=== PATIENT | male | born 1995 | race Asian ===

== ENCOUNTER 2017-07-10 05:37 | Emergency (ER) | payer OTHER ==
[~2017-07-10] VITALS: Ht 177.8 cm; Wt 65.0 kg
[2017-07-10 05:41] VITALS: TEMP 36.9; Ht 177.8 cm; Wt 65.0 kg
[2017-07-10 06:34] VITALS: BP 121/73; PULSE 80; O2SAT 97
--- NOTE | 2017-07-11 08:00 | EMERGENCY ROOM VISIT NOTE ---
History First contact with patient: 05:50 Chief Complaint: SORETHROAT Stated Complaint: SORE THROAT History of Present Illness The patient is a 21 year old male who presents to the Emergency Room with complaints of sore throat symptoms for the past 3 or 4 days. The patient states that he has been taking "greek" medicine without relief of symptoms for the past 2 days. He has not had fever or chills. No known exposure to disease. No chest pain, chest tightness, or shortness of breath. He is able to eat and drink as normal, however it does cause worsening discomfort. He rates his current discomfort a 4/10. Review of Systems More than 10 systems were reviewed and otherwise negative with the exception of history of present illness. Past Medical/Surgical History No chronic medical disease Family History No pertinent family history Social History Smoking Status: Never Smoker Occupation Status: [employer] student Current/Historical Medications No Active Prescriptions or Reported Meds Physical Exam Vital Signs Date Time Temp Pulse Resp B/P (MAP) Pulse Ox O2 Delivery O2 Flow Rate FiO2 07/10/17 06:34 80 18 121/73 97 07/10/17 05:44 98 Room Air 07/10/17 05:41 36.9 82 18 128/74 98 Room Air Physical Exam VITALS: Vitals are noted on the nurse's note and reviewed by myself. Vital signs stable. GENERAL: Well-developed, well-nourished, male, who is in no acute distress and resting comfortably. Patient is cooperative with the examination. HEAD: Normocephalic atraumatic. EARS: External ear normal. External auditory canals clear, tympanic membranes pearly love without erythema or effusion bilaterally. EYES: Pupils equal round and reactive to light and accommodation. Conjunctivae without injection, sclerae without icterus. Extraocular movements intact. NOSE: Patent, turbinates without inflammation or discharge. MOUTH: Mucous membranes moist. Tonsils are not enlarged. Pharynx without erythema, blood, or exudate. Uvula midline. Airway patent. NECK: Supple without nuchal rigidity. No lymphadenopathy. No thyromegaly. Cervical spine is nontender. HEART: Regular rate and rhythm without murmurs gallops or rubs. LUNGS: Clear to auscultation bilaterally without wheezes, rales or rhonchi. No retractions or accessory muscle use. Medical Decision & Procedures ED Course Physical exam and history were performed. Nursing notes, EMR, and Medication List were personally reviewed. Patient appears to have sore throat symptoms for the past few days. On examination there is no significant findings. There certainly is no evidence of tonsillar abscess. The patient does not appear toxic. He was able to show me the medication that he has been taking, and it is 500 mg amoxicillin that he has been taking 3 times daily. Overall he should continue this medication as prescribed. He is to use [id number] analgesics and follow up with his primary care physician in the next 2-3 days for recheck. He was invited back to the ER with any new, worsening, or concerning symptoms. The chart was completed utilizing [employer] Speech Voice Recognition Software. Grammatical errors, random word insertions, pronoun errors, and incomplete sentences are an occasional consequence of this system due to software limitations, ambient noise, and hardware issues. Any formal questions or concerns about the content, text, or information contained within the body of this dictation should be directly addressed to the provider for clarification. . Medical Decision Differential diagnosis: Etiologies such as viral syndrome, tonsillitis, streptococcal pharyngitis, mononucleosis, peritonsillar abscess, retropharyngeal abscess, otitis, pneumonia , influenza, as well as others were entertained. Impression Primary Impression: Sore throat Departure Information Dispostion Home / Self-Care Condition GOOD Prescriptions No Active Prescriptions or Reported Meds Referrals No Doctor, Assigned (PCP) Forms HOME CARE DOCUMENTATION FORM, IMPORTANT VISIT INFORMATION Patient Instructions My [facility] Additional Instructions You were seen and evaluated today on an emergency basis only. This is not a substitute for, or an effort to provide, complete comprehensive medical care. It is not possible to recognize and treat all injuries or illnesses in a single emergency department visit. For this reason it is recommended that you followup with your primary care physician or [facility] in the next 2-3 days for recheck. Continue antibiotics as previously prescribed. For baseline pain relief you may alternate ibuprofen and acetaminophen every 4 hours for pain control. Take 600 mg ibuprofen (Advil) and then 4 hours later take 1000 mg acetaminophen (Tylenol). Do not take more than 3000 mg acetaminophen in a single day. Drink plenty of fluids and remain well hydrated You are welcome to return to the emergency department anytime with new, worsening, or concerning symptoms.
== END 2017-07-10 06:35 | disposition home or self-care (01) ==
LOC: C.EDB 05:39
DX: J02.9 Acute pharyngitis, unspecified (principal)